=== PATIENT | male | born 2000 ===

== ENCOUNTER 2024-03-20 10:44 | Outpatient (AMB) | payer BC, SELFPAY ==
[2024-03-20 10:55] VITALS: BP 104/60; PULSE 80; O2SAT 99; BMI 20.6
--- NOTE | 2024-03-20 10:55 | A.OFFPC_ITS ---
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 They are transferring care from Dr. Boston Jones. Medical records were requested today. 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 Previous PCP was at primary care office in [place]. Concern--> The wrist pain has been a persistent issue, previously mentioned to a rover tender but without resolution. The patient describes weak wrists with difficulty applying pressure and experiencing pain after common activities, such as playing video games or typing, which has been ongoing for some time. He reports an inability to perform push-ups due to immediate pain, and simple actions like getting out of bed or using his phone result in soreness. There is no current numbness or tingling in his hands. Also reports skin lesions, described as bumps on the forearm, have persisted for months, with periodic itching and pus formation, unsuccessfully managed with self-drainage attempts. Vaccines: Up-to-date with flu vaccine. [facility] Family History Mother No problems noted. Social History (Updated 03/20/24 @ 11:19 by Eleazar Novak PA-C) Housing: House Alcohol intake: current Alcohol intake frequency: a few times a month Alcohol type: beer Patient Tobacco Use Status: Never used Tobacco e-Cigarette/Vaping Use: Never Used Substance Use Type: Marijuana service: No Current occupational status: unemployed Cognitive needs: No Hearing needs: No Vision needs: Yes Questionnaire PHQ-9 Over the last 2 weeks, how often have you been bothered by any of the following problems? 1. Little interest or pleasure in doing things: not at all 2. Feeling down, depressed, or hopeless: not at all 3. Trouble falling or staying asleep, or sleeping too much: not at all 4. Feeling tired or having little energy: not at all 5. Poor appetite or overeating: several days 6. Feeling bad about yourself - or that you are a failure or have let yourself or your family down: not at all 7. Trouble concentrating on things, such as reading the newspaper or watching television: not at all 8. Moving or speaking so slowly that other people could have noticed. Or the opposite - being so fidgety or restless that you have been moving around a lot more than usual: not at all 9. Thoughts that you would be better off or of hurting yourself in some way: not at all Total score: 1 Depression Screening Interpretation: Negative Depression Screening Done: Yes 06201 - PHQ-9 Billing: Yes Source: Developed by Drs. Jeferson Vasquez, Blossom Doyle, Warren Cerda and colleagues, with an educational jhonny from [employer]. Thrive Questionnaire Date Thrive assessed: 03/20/24 I am a: Patient What is your living situation today?: I have a steady place to live Within the past 12 months, did the food you bought not last and you didn't have the money to get more?: Never true Within the past 12 months, did you worry whether your food would run out before you got money to buy more?: Never true Do you have trouble paying for medicines?: No Do you have trouble getting transportation to medical appointments?: No Do you have trouble paying your heating and electricity bill?: No Do you have trouble taking care of your child, family member or friend?: No Do you have trouble with day-to-day activities such as bathing, preparing meals, shopping, managing finances, etc.?: No Are you currently unemployed and looking for a job?: Yes Are you interested in more education?: Yes Please select the resources that you would like help with: None Currently or been in a relationship where the following occur: Controlled Emotionally THRIVE Score: 1 AUDIT C Alcohol Use Questionnaire (AUDIT-C) 1. How often do you have a drink containing alcohol?: Monthly or less 2. How many drinks containing alcohol do you have on a typical day when you are drinking?: 1 or 2 3. How often do you have six or more drinks on one occasion?: Never Total Score: 1 NIKKIE-7 AMB Questionnaire NIKKIE-7 Date NIKKIE - 7 assessed: 03/20/24 Feeling nervous, anxious, or on edge: 2 = More than half the days Not being able to stop or control worryin = Several days Worrying too much about different things: 0 = Not at all Trouble relaxin = Several days Being so restless that it is hard to sit still: 0 = Not at all Becoming easily annoyed or irritable: 0 = Not at all Feeling afraid as if something awful might happen: 0 = Not at all Total NIKKIE-7 score (0-4 normal; 5-9 mild; 10-14 moderate; 15-21 severe): 4 Source: Developed by Drs. Jeferson Vasquez, Blossom Doyle, Warren Cerda and colleagues, with an educational jhonny from [employer]. NIKKIE-7 Assessment Billing NIKKIE-7 Assessment Tool: NIKKIE-7 Assessment 32489 Review of Systems Const Denies body aches, Denies chills, Denies excessive sweating, Denies fatigue, Denies fever(s) and Denies headache(s) Eyes Denies blurry vision ENT Denies dysphagia, Denies vertigo, Denies dizziness, Denies headache(s), Denies hearing loss and Denies tinnitus Card Denies chest pain, Denies chest pain with activity, Denies syncope, Denies irregular heart rhythm and Denies dyspnea Resp Denies chest congestion, Denies cough, Denies hemoptysis, Denies dyspnea and Denies wheezing GI Denies abdominal pain, Denies melena, Denies hematochezia, Denies coffee ground emesis, Denies dysphagia, Denies diarrhea, Denies nausea and Denies vomiting Denies difficulty urinating, Denies dysuria, Denies urinary frequency, Denies urinary hesitancy and Denies urinary urgency Musc Denies arthralgias, Denies limited range of motion, Denies muscle cramps and Denies muscle weakness Skin/Breast Denies rash and Denies skin ulcer Neuro Denies Abnormal speech present, Denies confusion, Denies vertigo, Denies dizziness, Denies syncope, Denies headache(s), Denies memory loss and Denies seizure-like activity Psych Denies anxiety, Denies confusion, Denies depression, Denies memory loss, Denies panic attacks and Denies paranoia Endo Denies excessive sweating, Denies fatigue, Denies flushing, Denies polydipsia and Denies polyuria Aller/Immun Denies wheezing Physical exam (Primary Care) Vital Signs: Last Vital Signs Pulse 80 03/20/24 10:55 BP 104/60 03/20/24 10:55 Pulse Ox 99 03/20/24 10:55 Oxygen Delivery Method Room Air 03/20/24 10:55 BMI result Body Mass Index 20.6 Tobacco/Smoking Status: Tobacco use Status Tobacco use date assessed 03/20/24 03/20/24 11:05 Patient Tobacco Use Status Never used Tobacco 03/20/24 11:19 e-Cigarette/Vaping Use Never Used 03/20/24 11:19 PHQ-9: PHQ-9 Score PHQ-9: Total score 1 03/20/24 11:12 Depression Screening Interpretation: Negative Thrive Assessment: Date of Thrive Assessment Date Thrive assessed 03/20/24 03/20/24 11:05 Currently or been in a relationship where the following occur: Controlled Emotionally Const General: cooperative, comfortable, no acute distress, alert and awake; No confusion Orientation/consciousness: oriented to person, oriented to place, patient oriented x3 and No confusion HENMT Head: Yes normocephalic Ears: external ears normal and TM's normal bilaterally Face and sinus: No sinus tenderness Mouth: Normal oral and palatal mucosa present and tongue normal Teeth and gingiva: dentition normal and gingiva normal Throat: Yes posterior oropharynx normal, Yes tonsils normal and Yes uvula midline Eyes Conjunctivae: conjunctivae normal Sclerae: sclerae normal Pupils: Equal, round and reactive pupils present EOM: EOMs intact bilaterally Direct Ophthalmoscopy: No no photophobia Neck Neck: Yes no lymphadenopathy, No tender and Yes no JVD Thyroid: Thyroid normal Carotids: no bruits Chest Chest palpation & inspection: no tenderness Resp Effort & Inspection: normal respiratory effort, no audible wheezes, not labored and no stridor Auscultation: no crackles, no rales, no rhonchi and no wheezes Cardio Jugular venous distension: no JVD Rate: regular rate, not bradycardic and not tachycardic Rhythm: regular rhythm Bruits: no carotid bruits Peripheral pulses: Peripheral pulses 2+ throughout GI Inspection: Yes normal to inspection, No abdominal wall ecchymosis and No visible herniation Palpation (GI): Soft to palpation, nontender, no guarding, not rigid and No hepatosplenomegaly present Auscultation: normoactive bowel sounds General: Yes no CVA tenderness Back/Spine/Pelvis Back: no CVA tenderness and No back tenderness Cervical Spine: cervical ROM normal Thoracic/Lumbar Spine: thoracic and lumbar spine normal to inspection, straight leg raise negative bilaterally, No thoraco-lumbar ROM limited and No lumbar spinal tenderness Skin Lesions: no lesions Rashes: no rashes Wounds: no wounds Neuro General: oriented to person, oriented to place, patient oriented x3, CN's II-XI intact bilaterally and No confusion Cranial nerves: Yes Equal, round and reactive pupils present and Yes Normal accommodation reflex present Cognition (Neuro): normal cognition Speech: No Abnormal speech present Gait exam (Neuro): Normal gait present Motor exam (neuro): 5/5 motor strength present throughout Extrem Right upper extremity: full ROM; no cyanosis Left upper extremity: full ROM; no cyanosis Elbow/forearm/wrist images: 2 1. SMALL PUSTULES OVER FOREARM Right lower extremity: no edema Left lower extremity: no edema Psych Appearance: grossly normal Mental Status: mental status grossly normal Affect: normal affect Attitude: cooperative Thought process: Normal thought process present Office Procedures Flu Questionnaire Does the patient have a severe egg allergy?: No Does the patient have severe life threatening allergies?: No Does the patient have a fever or illness today?: No Has the patient ever had Guillain-Warner Syndrome?: No Has the patient ever had any past reaction to a flu shot?: No Immunizations Fluarix Triv [id number] (PF) 45 mcg (15 mcg x 3)/0.5 mL IM syringe Performing Provider: Eleazar Novak PA-C Performing Location: [facility] Administered by: RITCHIE Morrow on 03/20/24 11:11 2 Dose Route Admin Location Dispensed Lot Number Expiration Date NDC Superintendent Division 0.5 mL IM Left Deltoid 0.5 mL [id number] 09/17/24 [id number] [place] 2 VIS Given Date VIS Provided VIS Publication Date 03/20/24 Single Vaccine 20 Eligibility Eligibility Date Funding Source Not VFC Eligible 03/20/24 Private Coding Level of Care Code New Pt Prev Care 18-39yr([id number] Diagnoses Annual physical exam Z00.00 Screening for diabetes mellitus (DM) Z13.1 Bilateral wrist pain M25.531; M25.532 Pustular acne L70.0 NIKKIE (generalized anxiety disorder) F41.1 Additional Codes NIKKIE-7 Assessment Billing - NIKKIE-7 Assessment Tool: NIKKIE-7 Assessment 17628 ([id number]) PHQ-9 - 67631 - PHQ-9 Billing: Yes ([id number]) Assessment & Plan Assessment & Plan (1) Annual physical exam: Code(s): Z00.00 - Encounter for general adult medical examination without abnormal findings Category: Medical Plan: As per HPI (2) Screening for diabetes mellitus (DM): Code(s): Z13.1 - Encounter for screening for diabetes mellitus Category: Medical Plan: As per HPI (3) Bilateral wrist pain: Code(s): M25.531 - Pain in right wrist; M25.532 - Pain in left wrist Category: Medical Plan: Attend occupational therapy sessions as scheduled. - Consider anti-inflammatory medications for wrist pain relief as discussed (4) Pustular acne: Code(s): L70.0 - Acne vulgaris Category: Medical Plan: I suspect a pustular-type acne possibly linked to minor infections. A prescribed topical antibiotic cream was suggested, with a plan to reassess or consider dermatology consultation if no improvement is noted. (5) NIKKIE (generalized anxiety disorder): Code(s): F41.1 - Generalized anxiety disorder Category: Medical Plan: Patient was treated with Celexa for his anxiety and depression in the past. He does not feel he needs anymore pharmacological therapy.. Patient's NIKKIE-7 score today positive for anxiety which has been existing condition for him. He does report speaking with a mental health therapist which has been helpful. Orders: Orders 2 Influenza [id number] Immunization Today Z23 - Encounter for immunization Comprehensive [place]. Panel Fast Today Z13.1 - Encounter for screening for diabetes mellitus XR wrist LT 2V Today M25.531 - Pain in right wrist, M25.532 - Pain in left wrist XR wrist RT 2V Today M25.531 - Pain in right wrist, M25.532 - Pain in left wrist OT Evaluation and Treatment Today M25.531 - Pain in right wrist, M25.532 - Pain in left wrist Medications: New 2 metronidazole 1% 1 appl topical DAILY 15 days 60 grams 0RF L70.0 - Acne vulgaris
== END 2024-03-20 11:33 | disposition home or self-care (01) ==
PROVIDERS: Visit Provider Physician Assistant
DX: Z00.00 Encounter for general adult medical examination without abnormal findings (principal); Z13.1 Encounter for screening for diabetes mellitus; M25.531 Pain in right wrist; M25.532 Pain in left wrist; L70.0 Acne vulgaris; F41.1 Generalized anxiety disorder; Z23 Encounter for immunization

== ENCOUNTER → 2024-03-20 10:44 | Outpatient (BNVA) | payer BC, SELFPAY | PROVIDERS: Visit Provider Physician Assistant | DX: Z00.00 Encounter for general adult medical examination without abnormal findings (principal); Z23 Encounter for immunization; M25.531 Pain in right wrist; M25.532 Pain in left wrist; L70.0 Acne vulgaris; F41.1 Generalized anxiety disorder | CPT/HCPCS: 90471; 90656; 96127 ==